=== PATIENT | male | born 1990 | race Caucasian/White ===

== ENCOUNTER 2018-05-05 23:51 | Emergency (ER) | payer SELFPAY ==
--- NOTE | 2018-05-05 23:59 | Emergency Department Record ---
History of Present Illness - General Chief Complaint: Laceration(s) Stated Complaint: LAC Time Seen by Provider: 05/05/18 23:59 Source: Patient Mode of Arrival: Ambulatory Limitations: No limitations - History of Present Illness Initial Commments: The patient sustained a dorsal L wrist laceration due to a table saw 30 minutes ago. He denies any numbness or tingling. His Td is UTD. Onset/Timin -: Minutes(s) Place: Home Context: Accidental Associated Symptoms: None - Related Data Patient Tetanus UTD (within 5 yrs): Yes Previous Rx's Medication Instructions Recorded Cephalexin [Keflex] 500 mg PO QID #20 cap 05/06/18 Allergies Allergy/AdvReac Type Severity Reaction Status Date / Time No Known Drug Allergies Allergy Unverified 01/20/17 14:43 Travel Screening - Travel/Exposure Within Last 30 Days Have you traveled within the last 30 days?: No Review of Systems Constitutional: Denies: Chills, Fever Eyes: Denies: Eye discharge ENT: Denies: Congestion Respiratory: Denies: Cough, Dyspnea Past Medical History - SOCIAL HISTORY Smoking Status: Former smoker Alcohol Use: None Drug Use: None - RESPIRATORY Hx Respiratory Disorders: No - CARDIOVASCULAR Hx Cardio Disorders: Yes Comment:: Murmur - NEURO Hx Neuro Disorders: No - GI Hx GI Disorders: No - Hx Genitourinary Disorders: No - ENDOCRINE Hx Endocrine Disorders: No - MUSCULOSKELETAL Hx Musculoskeletal Disorders: No - PSYCH Hx Psych Problems: No - HEMATOLOGY/ONCOLOGY Hx Hematology/Oncology Disorders: No Family Medical History Any Significant Family History?: No Physical Exam - General General Appearance: Alert, Oriented x3, Cooperative, No acute distress - Head Head exam: Atraumatic, Normocephalic, Normal inspection - Eye Eye exam: Normal appearance, PERRL - Extremities Extremities exam: Full ROM, Tenderness. negative: Normal inspection (There is a 2.0 laceration to the distal dorsal wrist near the distal ulna. The L hand is NVI with normal tendon and nerve function. The lac is gaping open.), Joint swelling Image of Hand: 1 - 2.0 cm Lac. Course Vital Signs 05/05/18 23:53 Temperature 98.2 F Pulse Rate 86 Respiratory 20 Rate Blood Pressure 127/81 Pulse Ox 99 - Reevaluation(s) Reevaluation #1: Procedure note: The L wrist lac was anesth. with 3 cc's Lido 1% with Epi. The wound was explored and there was no bone or tendon visualized in the wound along with no FB. The lac was then prepped with betadine and lavaged with sterile saline. The lac was then closed with 5 4.0 nylon sutures. There were no complications. 05/06/18 00:30 Disposition Disposition: Discharge Clinical Impression: Laceration of wrist Qualifiers: Encounter type: initial encounter Laterality: left Qualified Code(s): S61.512A - Laceration without foreign body of left wrist, initial encounter Disposition: Home, Self-Care Condition: (2) Stable Instructions: Laceration (ED) Additional Instructions: Keep dry for 2 days then no soaking or swimming. Watch for signs of infection. Take the Keflex as directed an use OTC pain medicines if needed. Return to the ER in 10 days for suture removal. Prescriptions: Cephalexin [Keflex] 500 mg PO QID #20 cap Forms: Patient Portal Access Time of Disposition: 00:29 Quality - Quality Measures Quality Measures: N/A - Blood Pressure Screening View Details: Yes Does Patient Have Any of the Following: No Blood Pressure Classification: Pre-Hypertensive BP Reading Systolic Measurement: 127 Diastolic Measurement: 81 Screening for High Blood Pressure: < Pre-Hypertensive BP, F/U Documented > [ G8950] Pre-Hypertensive Follow-up Interventions: Referral to alternative/primary care provider.
== END 2018-05-06 00:34 | disposition home or self-care (01) ==
LOC: ER 23:51
DX: S61.512A Laceration without foreign body of left wrist, initial encounter (principal); Z87.891 Personal history of nicotine dependence; W31.2XXA Contact with powered woodworking and forming machines, initial encounter; Y93.9 Activity, unspecified; Y92.9 Unspecified place or not applicable; Y99.9 Unspecified external cause status
CPT/HCPCS: 12001; 99283

== ENCOUNTER 2019-05-18 13:59 | Emergency (ER) | payer OTHER ==
[2019-05-18] MEDS ORDERED: CEPHALEXIN 500 MG CAPSULE PO STA (14:09)
--- NOTE | 2019-05-18 14:12 | Emergency Department Record ---
History of Present Illness - General Stated complaint: RT MIDDLE FINGER SMASHED Time Seen by Provider: 05/18/19 14:09 Source: Patient Mode of Arrival: Ambulatory Limitations: No limitations - History of Present Illness Initial comments: 28 yo male presents after injury to his right middle finger. He was at work and dropped a block on the finger. He injured the distal tip and nail. His last tetanus shot was 2 months ago. No other injuries or complaints. MD Complaint: Extremity pain, Joint pain -: Minutes(s) Location: Right -: Yes Arthralgia Radiation: Distal Quality: Aching Consistency: Constant Improves with: Nothing Worsens with: Palpation - Related Data Previous Rx's Medication Instructions Recorded Cephalexin [Keflex] 500 mg PO TID #21 cap 05/18/19 Hydrocodone/APAP 5/325Mg [Rudolph 1 each PO Q6H #10 tab 05/18/19 5Mg/325Mg] Allergies Allergy/AdvReac Type Severity Reaction Status Date / Time No Known Drug Allergies Allergy Verified 05/18/19 14:10 Review of Systems Constitutional: Denies: Chills, Fever, Weakness Eyes: Denies: Eye discharge ENT: Denies: Congestion, Throat pain Respiratory: Denies: Cough Cardiovascular: Denies: Chest pain Endocrine: Denies: Fatigue Gastrointestinal: Denies: Abdominal pain, Diarrhea, Nausea, Vomiting Genitourinary: Denies: Dysuria, Frequency Musculoskeletal: Reports: As per HPI, Arthralgia Skin: Denies: Bruising, Change in color, Rash Neurological: Denies: Numbness, Tingling, Weakness Psychiatric: Denies: Anxiety Hematological/Lymphatic: Denies: Easy bleeding, Easy bruising Past Medical History - SOCIAL HISTORY Smoking Status: Former smoker Drug Use: None - RESPIRATORY Hx Respiratory Disorders: No - CARDIOVASCULAR Hx Cardio Disorders: Yes Comment:: Murmur - NEURO Hx Neuro Disorders: No - GI Hx GI Disorders: No - Hx Genitourinary Disorders: No - ENDOCRINE Hx Endocrine Disorders: No - MUSCULOSKELETAL Hx Musculoskeletal Disorders: No - PSYCH Hx Psych Problems: No - HEMATOLOGY/ONCOLOGY Hx Hematology/Oncology Disorders: No Physical Exam - General General Appearance: Alert, Oriented x3, Cooperative, No acute distress Limitations: No limitations - Head Head exam: Atraumatic - Eye Eye exam: Normal appearance. negative: Conjunctival injection, Scleral icterus - ENT ENT exam: Normal exam Ear exam: Normal external inspection Nasal Exam: Normal inspection Mouth exam: Normal external inspection - Neck Neck exam: Normal inspection - Cardiovascular Peripheral Pulses: 2+: Radial (R) - Extremities Extremities exam: Full ROM, Normal capillary refill, Tenderness. negative: Normal inspection Image of Finger Tip: 1 - linear laceration across the nail - Neurological Neurological exam: Alert, Oriented X3 - Psychiatric Psychiatric exam: Normal affect, Normal mood - Skin Type of lesion: Laceration Course - Reevaluation(s) Reevaluation #1: 05/18/19 14:42 Digital Block Sterile prep Lidocaine 1% Plain. 4ml The wound was copiously irrigated The XR was reviewed. Distal tuff fracture. 05/18/19 15:02 A referral was faxed to Dr Ray's office of hand surgery 05/18/19 15:43 The case was discussed with Dr Ray Recommendation was for nail removal, nail bed repair, Xeroform in the nail fold and follow up in the office this week Ariana provided and copy of the XR as well. Procedure: Nail bed repair 1.2cm laceration of the nail bed Wound was cleaned and prepped in sterile fashion, no residual FB identified on examination. The wound was copiously irrigated with NS The nail was gently removed off the nail bed. It was nearly off from the initial trauma The nail bed laceration was repaired with 5-0 chromic sutures in interrupted fashion to approximate the injured nail bed laceration Patient tolerated the procedure well without complications. We discussed home care, reasons for immediate return if any concerns. 05/18/19 16:44 Disposition Disposition: Discharge Clinical Impression: Open fracture of tuft of distal phalanx of finger, Laceration of nail bed of finger Disposition: Home, Self-Care Condition: (1) Good Instructions: Finger Fracture (ED) Additional Instructions: Call Dr Ray tomorrow for a follow up time Return if you have any concerns with the heeling of the finger Leave the dressing on and keep the area dry and clean Prescriptions: Cephalexin [Keflex] 500 mg PO TID #21 cap Hydrocodone/APAP 5/325Mg [Rudolph 5Mg/325Mg] 1 each PO Q6H #10 tab Referrals: PETTY RAY M.D. [MEDICAL DOCTOR] - Forms: Patient Portal Access Time of Disposition: 15:44 Quality - Quality Measures Quality Measures: N/A - Blood Pressure Screening Does Patient Have Any of the Following: No Blood Pressure Classification: Hypertensive Reading Systolic Measurement: 146 Diastolic Measurement: 78 Screening for High Blood Pressure: < Pre-Hypertensive BP, F/U Documented > [G8950] Pre-Hypertensive Follow-up Interventions: Referral to alternative/primary care provider.
--- NOTE | 2019-05-19 09:13 | RADIOLOGY REPORT ---
EXAM: RIGHT HAND HISTORY: SMASHED THE THIRD FINGER BETWEEN LARGE ROCKS. PAIN AND LACERATION. TECHNIQUE: Three views of the right hand were obtained. Comparison: None. FINDINGS: There is a mildly displaced fracture to the terminal tuft of the third distal phalanx. The distal fracture is mildly displaced towards the palmar aspect. There is no significant angulation. There is overlying soft tissue swelling. By history there is an overlying laceration consistent with an open fracture. There is no radiopaque foreign body. The remaining osseous and articular structures appear intact. There is an old healed fracture of the fifth metacarpal. IMPRESSION: MINIMALLY DISPLACED FRACTURE OF THE TERMINAL TUFT OF THE THIRD DISTAL PHALANX. JOB NUMBER: [id number] [facility]
== END 2019-05-18 15:58 | disposition home or self-care (01) ==
LOC: ER 13:59
DX: S61.312A Laceration without foreign body of right middle finger with damage to nail, initial encounter (principal); S62.632A Displaced fracture of distal phalanx of right middle finger, initial encounter for closed fracture; W22.8XXA Striking against or struck by other objects, initial encounter; Y93.42 Activity, yoga; Y99.0 Civilian activity done for income or pay; Z87.891 Personal history of nicotine dependence
CPT/HCPCS: 11760; 99284